=== PATIENT | female | born 1950 | race Caucasian/White ===

== ENCOUNTER 2024-03-17 04:10 | Day surgery (SDC) | payer BC ==
[2024-03-15 11:06] VITALS: BMI 26.0
[2024-03-17] MEDS ORDERED: PROPOFOL 20 ML ONE (14:12)
[2024-03-17] MEDS ORDERED: ROCURONIUM BROMIDE 50 MG/5 ML SYRINGE ONE (14:12)
[2024-03-17] MEDS ORDERED: MIDAZOLAM HCL 2 MG/2 ML SINGLE DOSE VIAL ONE (14:13)
[2024-03-17] MEDS ORDERED: LIDOCAINE HCL/PF 2% SDV 5ML VIAL ONE (14:14)
[2024-03-17] MEDS ORDERED: GEMCITABINE HCL 1 GM/50 ML DISP.SYRIN (OR USE ONLY) IS SCH (14:15)
[2024-03-17] MEDS: ceFAZolin SODIUM 1 GM VIAL IVPB ONE (14:36)
[2024-03-17] MEDS ORDERED: SUGAMMADEX SODIUM 200 MG/2 ML VIAL ONE (15:11)
[2024-03-17] MEDS: LACTATED RINGERS SOLUTION 1,000 ML IV SCH (16:21)
[2024-03-17] MEDS ORDERED: ONDANSETRON 4 MG/2 ML VIAL ONE ×2 (16:58→18:48)
[2024-03-17] MEDS: ONDANSETRON 4 MG/2 ML VIAL IVPUSH PRN (17:02)
[2024-03-17 18:31] VITALS: TEMP 97.8
[2024-03-17] MEDS: ONDANSETRON 4 MG/2 ML VIAL IVPUSH ONE (18:50)
[2024-03-17 19:44] VITALS: BP 120/65; PULSE 80; RESP 16
== END 2024-03-17 19:45 | disposition home or self-care (01) ==
LOC: JASU-SURG 04:10
PROVIDERS: ATTEND Urology
PROC: 0TBB8ZZ Excision of Bladder, Via Natural or Artificial Opening Endoscopic (ICD-10-PCS; principal; 2024-03-17 14:00)
DX: C67.9 Malignant neoplasm of bladder, unspecified (principal)
CPT/HCPCS: 88307-TC; 94760; C2617

== ENCOUNTER 2024-03-28 18:04 | Emergency (ER) | payer BC ==
[2024-03-28 18:18] VITALS: BP 143/78; PULSE 80; RESP 18; TEMP 97.9; BMI 25.4
[2024-03-28] MEDS ORDERED: ACETAMINOPHEN INJECTION 100 ML ONE (18:48)
[2024-03-28 18:50] LABS: BASO % 0.3 % (0-2.0); EOS % 0.6 % (0-4.5); HEMOGLOBIN 12.1 GM/dL (10.7-15.3); LYMPH % 7.4 % (8-40); MCH 28.4 pg (25.7-33.7); MCHC 32.6 g/dl (32.0-36.0); MEAN PLT VOLUME 9.9 fl (7.5-11.1); MONO % 6.8 % (3.8-10.2); NEUT % 84.9 % (42.8-82.8); PLATELET COUNT 247 10^3/uL (134-434); RBC 4.25 M/mm3 (3.60-5.2); RDW 16.1 % (11.6-15.6); WHITE BLOOD COUNT 8.8 K/mm3 (4.0-10.0)
[2024-03-28] MEDS: SODIUM PHOSPHATE/NA BIPHOS 133 ML ENEMA PR ONE (18:59)
[2024-03-28] MEDS: ACETAMINOPHEN 1000 MG/100 ML BAG IVPB ONE (18:59)
[2024-03-28 20:22] LABS: ALBUMIN 2.9 g/dl (3.4-5.0); ALK PHOS 48 U/L (45-117); ANION GAP 8 mmol/L (4-13); BILIRUBIN,TOTAL 0.5 mg/dL (0.2-1); BLOOD UREA NITROGEN 47.1 mg/dL (7-18); CALCIUM 8.2 mg/dL (8.5-10.1); CHLORIDE 111 mmol/L (98-107); CO2 17 mmol/L (21-32); CREATININE 4.2 mg/dL (0.55-1.3); GLUCOSE,RANDOM 91 mg/dL (74-106); PHOSPHOROUS 4.1 mg/dL (2.5-4.9); POTASSIUM 6.1 mmol/L (3.5-5.1); SGOT/AST 33 U/L (15-37); SGPT/ALT 9 U/L (13-61); SODIUM 136 mmol/L (136-145); TOT PROT 7.5 g/dl (6.4-8.2)
[2024-03-28] MEDS: BISACODYL 5 MG TABLET.DR (FP) PO ONE (21:21)
[2024-03-28] MEDS: LACTATED RINGERS SOLUTION 1000 ML INFUS.BAG IV ONE (21:21)
[2024-03-28 22:12] LABS: POTASSIUM 3.8 mmol/L (3.5-5.1)
[2024-03-28 22:13] LABS: CALCIUM 8.6 mg/dL (8.5-10.1)
[2024-03-28 22:14] LABS: BLOOD UREA NITROGEN 46.9 mg/dL (7-18)
[2024-03-28 22:17] LABS: CREATININE 4.3 mg/dL (0.55-1.3)
[2024-03-28] MEDS ORDERED: SIMETHICONE 80 MG TAB.CHEW (FP) ONE (22:59)
[2024-03-28] MEDS ORDERED: FAMOTIDINE 20 MG TABLET ONE (22:59)
[2024-03-28] MEDS: SIMETHICONE 80 MG TAB.CHEW (FP) PO ONE (23:16)
[2024-03-28] MEDS: FAMOTIDINE 20 MG TABLET PO ONE (23:16)
== END 2024-03-29 00:10 | disposition home or self-care (01) ==
LOC: JER 18:04
PROC: 3E033NZ Introduction of Analgesics, Hypnotics, Sedatives into Peripheral Vein, Percutaneous Approach (ICD-10-PCS; principal; 2024-03-28)
DX: K59.00 Constipation, unspecified (principal); R10.84 Generalized abdominal pain
CPT/HCPCS: 36415; 74176-TC; 80048; 80053; 83690; 83735; 84100; 84443; 85025; 99285-25; J0131

== ENCOUNTER 2024-06-24 17:19 | Inpatient (IN) | payer BC ==
[2024-06-24] MEDS ORDERED: ALBUTEROL SO4 2.5/IPRATROPIUM 0.5 INH SOL 3 ML VIAL.NEB. NEB ONE (18:24)
[2024-06-24] MEDS ORDERED: methylPREDNISolone NA SUCC 125 MG/2 ML VIAL ONE (18:24)
[2024-06-24] MEDS: ALBUTEROL SO4 2.5/IPRATROPIUM 0.5 INH SOL 3 ML VIAL.NEB. NEB ONE (19:03)
[2024-06-24 19:20] LABS: VENOUS BASE EXCESS -7.1 mmol/L (-2-2); VENOUS O2 SATURATION 32.3 % (70-80); VENOUS PCO2 38.7 mmHg (38-52); VENOUS PH 7.302 (7.310-7.410)
[2024-06-24] MEDS: SODIUM CHLORIDE 500 ML IV STA (19:25)
[2024-06-24] MEDS: methylPREDNISolone NA SUCC 125 MG/2 ML VIAL IVPB ONE (19:25)
[2024-06-24 19:35] LABS: ABSOLUTE IMMATURE GRANULOCYTES 0.04 x10^3/uL (0.0-0.031); BASOPHILS # 0.02 x10^3/uL (0.01-0.08); EOSINOPHIL % 0.3 % (0.7-5.8); EOSINOPHILS # 0.02 x10^3/uL (0.04-0.36); HEMATOCRIT 39.8 % (34.1-44.9); HEMOGLOBIN 12.7 g/dL (11.2-15.7); MCHC 31.9 g/dl (32.2-35.5); MEAN CELL VOLUME 91.9 fl (79.4-94.8); MEAN PLT VOLUME 10.8 fl (9.4-12.3); MONOCYTE # 0.47 x10^3/uL (0.24-0.86); MONOCYTE % 7.4 % (4.7-12.5); PLATELET COUNT 302 x10^3/uL (182-369); RDW 15.2 % (12.4-16.6)
[2024-06-24 19:59] LABS: BLOOD UREA NITROGEN 51.9 mg/dL (7-18)
[2024-06-24 20:00] LABS: ALBUMIN 2.5 g/dl (3.4-5.0); CALCIUM 8.5 mg/dL (8.5-10.1)
[2024-06-24 20:04] LABS: BILIRUBIN,TOTAL 0.5 mg/dL (0.2-1); TOT PROT 6.7 g/dl (6.4-8.2)
[2024-06-24 20:05] LABS: N-TERMINAL BNP 12943.3 pg/ml (5-450)
[2024-06-24 20:52] LABS: HIV INTERPRETATION NEGATIVE (NEGATIVE)
[2024-06-24 21:01] LABS: HCV DIAGNOSTIC IN-HOUSE W/RFLX REACTIVE (NONREACTIVE)
[2024-06-24 21:03] LABS: POTASSIUM 4.4 mmol/L (3.5-5.1)
[2024-06-24 21:08] LABS: CREATININE 3.6 mg/dL (0.55-1.3)
[2024-06-25] MEDS: methylPREDNISolone NA SUCC 40 MG/1 ML VIAL IVPUSH SCH (02:26)
[2024-06-25] MEDS: MORPHINE SULFATE 2 MG/ML SYRINGE SQ ONE (02:40)
[2024-06-25] MEDS ORDERED: ACETAMINOPHEN 325 MG TABLET (FP) PO PRN (05:47)
[2024-06-25] MEDS: ALBUTEROL SO4 2.5/IPRATROPIUM 0.5 INH SOL 3 ML VIAL.NEB. NEB SCH (08:00)
[2024-06-25 10:57] LABS: INR 0.95 (0.83-1.09); PROTHROMBIN TIME (PATIENT) 10.4 SEC (9.7-13.0)
[2024-06-25 11:00] LABS: ACTIVATED PTT 28.8 SECONDS (25.2-36.5)
[2024-06-25 11:13] LABS: POTASSIUM 4.9 mmol/L (3.5-5.1)
[2024-06-25] MEDS: PANTOPRAZOLE 40 MG TABLET PO SCH (11:14)
[2024-06-25] MEDS: amLODIPine BESYLATE 10 MG TABLET (FP) PO SCH (11:14)
[2024-06-25 11:22] LABS: CREATININE 3.5 mg/dL (0.55-1.3)
[2024-06-25 11:50] LABS: HEMATOCRIT 39.5 % (34.1-44.9); HEMOGLOBIN 12.4 g/dL (11.2-15.7); MCHC 31.4 g/dl (32.2-35.5); MEAN CELL VOLUME 91.2 fl (79.4-94.8); MEAN PLT VOLUME 11.2 fl (9.4-12.3); PLATELET COUNT 304 x10^3/uL (182-369)
[2024-06-25] MEDS: ALBUTEROL SO4 2.5/IPRATROPIUM 0.5 INH SOL 3 ML VIAL.NEB. NEB PRN (16:41)
[2024-06-25] MEDS: LORATADINE 10 MG TABLET PO ONE (21:23)
[2024-06-26 09:40] LABS: EPI CELLS >36 /uL (0-25.1); HYALINE CASTS 3 /uL (0-3.1); PH,URINE 5.5 (5.0-8.0); URINE APPEARANCE CLOUDY; URINE BACTERIA 143 /uL (0-1359); URINE BILIRUBIN NEGATIVE (NEGATIVE); URINE COLOR YELLOW; URINE GLUCOSE (UA) NEGATIVE (NEGATIVE); URINE KETONE NEGATIVE (NEGATIVE); URINE LEUK ESTERASE 1+ (NEGATIVE); URINE NITRITE NEGATIVE (NEGATIVE); URINE PROTEIN 2+ (NEGATIVE); URINE WBC 193 /uL (0-25.8)
[2024-06-26 10:16] LABS: URINE RBC 157.1 /uL (0-23.9)
[2024-06-26 10:17] LABS: YEAST PRESENT (NEGATIVE)
[2024-06-26] MEDS: LORATADINE 10 MG TABLET PO SCH (10:35)
[2024-06-26] MEDS: NICOTINE POLACRILEX 2 MG GUM BUC PRN (13:00)
[2024-06-26 15:52] VITALS: BMI 26.9
[2024-06-26 20:23] VITALS: RESP 18
[2024-06-27] MEDS: predniSONE 10 MG TABLET (UD) PO SCH (09:08)
[2024-06-27 10:15] LABS: POTASSIUM 4.1 mmol/L (3.5-5.1)
[2024-06-27 10:19] LABS: ALBUMIN 2.4 g/dl (3.4-5.0); BLOOD UREA NITROGEN 64.3 mg/dL (7-18); CALCIUM 8.3 mg/dL (8.5-10.1)
[2024-06-27 10:22] LABS: CREATININE 3.7 mg/dL (0.55-1.3)
[2024-06-27 10:24] LABS: BILIRUBIN,TOTAL 0.5 mg/dL (0.2-1)
[2024-06-27 10:26] LABS: TOT PROT 6.2 g/dl (6.4-8.2)
[2024-06-27 15:52] LABS: HEPATITIS B SURF AG NON-MATERN NON-REACTIVE (NONREACTIVE)
[2024-06-28 18:15] LABS: BODY FLUID MACROPHAGES 16 %; BODY FLUID MESOTHELIAL 4 %; BODY FLUID MONOCYTE 0 %; BODYL FLD EOSINOPHIL 1 %
[2024-06-29 06:47] VITALS: BP 128/72; PULSE 84; TEMP 97.9
[2024-06-29 09:52] LABS: HEMATOCRIT 39.9 % (34.1-44.9); HEMOGLOBIN 12.4 g/dL (11.2-15.7); MCHC 31.1 g/dl (32.2-35.5); MEAN CELL VOLUME 92.8 fl (79.4-94.8); MEAN PLT VOLUME 11.6 fl (9.4-12.3); PLATELET COUNT 203 x10^3/uL (182-369); RDW 14.9 % (12.4-16.6)
[2024-06-29 10:16] LABS: POTASSIUM 4.6 mmol/L (3.5-5.1)
[2024-06-29 10:24] LABS: ALBUMIN 2.2 g/dl (3.4-5.0); BLOOD UREA NITROGEN 60.8 mg/dL (7-18)
[2024-06-29 10:27] LABS: CREATININE 3.5 mg/dL (0.55-1.3)
[2024-06-29 10:29] LABS: BILIRUBIN,TOTAL 0.3 mg/dL (0.2-1); TOT PROT 5.7 g/dl (6.4-8.2)
[2024-06-29 10:31] LABS: CALCIUM 8.6 mg/dL (8.5-10.1)
[2024-06-29 16:07] LABS: BODY FLUID ALBUMIN 2.3 g/dL (Not Estab.)
== END 2024-06-29 13:45 | disposition home or self-care (01) | DRG 181 ==
LOC: JER 17:19 → JERBED 22:44 → J5S 06-25 02:09 → OBSVTOIN 06-27 12:27
PROVIDERS: ADMIT Family Medicine; ATTEND Family Medicine
PROC: 0W9G3ZZ Drainage of Peritoneal Cavity, Percutaneous Approach (ICD-10-PCS; principal; 2024-06-28)
DX: D49.1 Neoplasm of unspecified behavior of respiratory system (principal); I13.0 Hypertensive heart and chronic kidney disease with heart failure and stage 1 through stage 4 chronic kidney disease, or unspecified chronic kidney disease; I50.32 Chronic diastolic (congestive) heart failure; J44.1 Chronic obstructive pulmonary disease with (acute) exacerbation; R18.8 Other ascites; N13.39 Other hydronephrosis; C67.9 Malignant neoplasm of bladder, unspecified; N18.9 Chronic kidney disease, unspecified; B19.20 Unspecified viral hepatitis C without hepatic coma; Z85.41 Personal history of malignant neoplasm of cervix uteri
CPT/HCPCS: 0241U-QW; 36415; 71045-TC-FY; 71250-TC; 76775-TC; 76942-TC; 80048; 80053; 81003; 82042; 82105; 82150; 82465; 82803; 83615; 83735; 83880; 83986; 84157; 84478; 84484; 85025; 85027; 85610; 85730; 86705; 86708; 86803; 87070; 87075; 87102; 87116; 87205; 87206; 87210; 87340; 87389; 87517; 87522; 88108; 88305-TC; 88341-TC; 88342-TC; 93005; 93010; 94640; 97116-GP; 97161-GP; 99285-25; G0378